=== PATIENT | female | born 1975 | race Caucasian/White ===

== ENCOUNTER 2017-03-24 09:53 | Emergency (ER) | payer BC ==
[2017-03-24 09:17] LABS: URINE HCG POC HCG NEGATIVE (Negative)
[2017-03-24 09:20] LABS: BILIRUBIN,URINE NEGATIVE (NEG); CLARITY,URINE CLOUDY; COLOR,URINE YELLOW; GLUCOSE,URINE NEGATIVE (NEG); NITRITE,URINE NEGATIVE (NEG); PH,URINE 5.5; PROTEIN,URINE NEGATIVE (NEG-TRACE); UROBILINOGEN,URINE 0.2 mg/dL (0.2 mg/dL)
[2017-03-24 09:34] LABS: BACTERIA,URINE FEW /HPF (0-FEW); RBC,URINE RARE /HPF (0-2); SQUAMOUS EPITHELIAL CELL,UR MOD /LPF; WBC,URINE RARE /HPF (0-4)
[2017-03-24] MEDS: ONDANSETRON ODT 4 MG TAB.RAPDIS. PO (09:37)
[2017-03-24] MEDS: PHENAZOPYRIDINE 200 MG TABLET. PO (09:38)
[2017-03-24 10:06] LABS: ADD MAN DIFF? NO
[2017-03-24 10:15] LABS: ANION GAP 11 (6-14); BLOOD UREA NITROGEN 9 mg/dL (7-20); BUN/CREATININE RATIO 11 (6-20); CALCIUM 8.3 mg/dL (8.5-10.1); CARBON DIOXIDE 28 mmol/L (21-32); CHLORIDE 103 mmol/L (98-107); CREATININE 0.8 mg/dL (0.6-1.0); GFR 79.4; GLUCOSE 87 mg/dL (70-99); POTASSIUM 3.3 mmol/L (3.5-5.1); SODIUM 142 mmol/L (136-145)
[2017-03-24 10:22] LABS: ALBUMIN 3.4 g/dL (3.4-5.0); ALK PHOS 62 U/L (46-116); ALT (SGPT) 18 U/L (14-59); AST (SGOT) 19 U/L (15-37); CREATINE KINASE 185 U/L (26-192); LIPASE 68 U/L (73-393); TOTAL BILIRUBIN 0.4 mg/dL (0.2-1.0); TOTAL PROTEIN 6.9 g/dL (6.4-8.2)
[2017-03-24] MEDS: IV NORMAL SALINE 1000ML BAG 1,000 ML IV (10:25)
[2017-03-24 10:47] LABS: BASO # 0.1 x10^3/uL (0.0-0.2); BASO % 1 % (0-3); EOS # 0.2 x10^3/uL (0.0-0.7); EOS % 1 % (0-3); HEMATOCRIT 39.9 % (36.0-47.0); HEMOGLOBIN 13.4 g/dL (12.0-15.5); LYMPH # 2.1 x10^3/uL (1.0-4.8); LYMPH % 16 % (24-48); MEAN CORPUSCULAR HEMOGLOBIN 33 pg (25-35); MEAN CORPUSCULAR HGB CONC 34 g/dL (31-37); MEAN CORPUSCULAR VOLUME 98 fL (79-100); MONO # 0.8 x10^3/uL (0.0-1.1); MONO % 6 % (0-9); NEUT # 10.2 x10^3uL (1.8-7.7); NEUT % 77 % (31-73); PLATELET COUNT 330 x10^3/uL (140-400); RED BLOOD COUNT 4.09 x10^6/uL (3.50-5.40); RED CELL DISTRIBUTION WIDTH 12.5 % (11.5-14.5); WHITE BLOOD COUNT 13.2 x10^3/uL (4.0-11.0)
[2017-03-24] MEDS: DOXYCYCLINE HYCLATE 100 MG TABLET PO (11:37)
[2017-03-24] MEDS: cefTRIAXone IM 250 MG VIAL IM (11:40)
[2017-03-24] MEDS: ONDANSETRON PF 4 MG/2 ML VIAL. IV (12:10)
== END 2017-03-24 12:39 | disposition home or self-care (01) ==
LOC: ER 09:53
DX: R30.0 Dysuria (principal); R10.2 Pelvic and perineal pain; R31.9 Hematuria, unspecified; R11.0 Nausea; R10.30 Lower abdominal pain, unspecified; F32.9 Major depressive disorder, single episode, unspecified; G47.00 Insomnia, unspecified
CPT/HCPCS: 36415; 80053; 81001; 81025; 82550; 83690; 85025; 87086; 96361; 96372; 96374; 99284-25; J0696; J2405; J7030; Q0162

== ENCOUNTER 2017-09-16 09:28 | Emergency (ER) | payer BC ==
[2017-09-16 10:55] LABS: BILIRUBIN,URINE NEGATIVE (NEG); CLARITY,URINE TURBID; COLOR,URINE YELLOW; GLUCOSE,URINE NEGATIVE (NEG); NITRITE,URINE NEGATIVE (NEG); PROTEIN,URINE NEGATIVE (NEG-TRACE); UROBILINOGEN,URINE 0.2 mg/dL (0.2 mg/dL)
[2017-09-16 11:07] LABS: BACTERIA,URINE MOD /HPF (0-FEW); RBC,URINE OCC /HPF (0-2); SQUAMOUS EPITHELIAL CELL,UR MOD /LPF; WBC,URINE OCC /HPF (0-4)
[2017-09-16 11:13] LABS: ADD MAN DIFF? NO; NEG OBC UR NEG; POS OBC UR POS; U PREG PATIENT NEGATIVE (NEG)
[2017-09-16] MEDS: KETOROLAC 30 MG/ML INJ. IV (11:16)
[2017-09-16] MEDS: IV NORMAL SALINE 1000ML BAG 1,000 ML IV (11:16)
[2017-09-16] MEDS: DEXAMETHASONE SOD PHOS 4 MG/ML VIAL IV (11:17)
[2017-09-16] MEDS: diphenhydrAMINE 50 MG/ML VIAL IVP (11:17)
[2017-09-16] MEDS: METOCLOPRAMIDE HCL 10 MG/2 ML VIAL. IV (11:17)
[2017-09-16 11:19] LABS: BASO % 1 % (0-3); EOS % 0 % (0-3); HEMATOCRIT 39.9 % (36.0-47.0); HEMOGLOBIN 14.1 g/dL (12.0-15.5); LYMPH # 1.5 x10^3/uL (1.0-4.8); LYMPH % 19 % (24-48); MEAN CORPUSCULAR HEMOGLOBIN 32 pg (25-35); MEAN CORPUSCULAR HGB CONC 36 g/dL (31-37); MEAN CORPUSCULAR VOLUME 91 fL (79-100); MONO # 0.6 x10^3/uL (0.0-1.1); MONO % 7 % (0-9); NEUT # 5.8 x10^3uL (1.8-7.7); NEUT % 73 % (31-73); PLATELET COUNT 296 x10^3/uL (140-400); RED CELL DISTRIBUTION WIDTH 12.1 % (11.5-14.5)
[2017-09-16 11:26] LABS: ANION GAP 6 (6-14); BLOOD UREA NITROGEN 11 mg/dL (7-20); BUN/CREATININE RATIO 12 (6-20); CALCIUM 8.9 mg/dL (8.5-10.1); CARBON DIOXIDE 27 mmol/L (21-32); CHLORIDE 102 mmol/L (98-107); CREATININE 0.9 mg/dL (0.6-1.0); GLUCOSE 116 mg/dL (70-99); POTASSIUM 3.9 mmol/L (3.5-5.1); SODIUM 135 mmol/L (136-145)
[2017-09-16 11:32] LABS: ALBUMIN 3.7 g/dL (3.4-5.0); ALK PHOS 65 U/L (46-116); ALT (SGPT) 20 U/L (14-59); AST (SGOT) 13 U/L (15-37); TOTAL BILIRUBIN 0.5 mg/dL (0.2-1.0); TOTAL PROTEIN 7.3 g/dL (6.4-8.2)
[2017-09-20 08:49] LABS: URINE HCG POC HCG NEGATIVE (Negative)
== END 2017-09-16 12:58 | disposition home or self-care (01) ==
LOC: ER 09:28
DX: G43.909 Migraine, unspecified, not intractable, without status migrainosus (principal); F32.9 Major depressive disorder, single episode, unspecified
CPT/HCPCS: 36415; 80053; 81001; 81025; 85025; 96361; 96374; 96375; 99284; J1100; J1200; J1885; J2765; J7030

== ENCOUNTER 2019-07-09 01:13 | Emergency (ER) | payer BC ==
[~2019-07-09] VITALS: Ht 165.1 cm; Wt 61.3 kg
[~2019-07-09 01:13] MED LIST: DOXY100C2 PO; L-NO1TBD PO; LEXAPRO5 MG PO; LORA10TA68 PO; ONDA4TAB10 SL; TRAZ-118 PO
[2019-07-09] MEDS ORDERED: FAMOTIDINE 20 MG/2 ML VIAL ONE (01:37)
[2019-07-09] MEDS: ONDANSETRON ODT 4 MG TAB.RAPDIS. PO ONE (01:41)
[2019-07-09] MEDS: FAMOTIDINE 20 MG TABLET. PO ONE (01:46)
[2019-07-09] MEDS: LIDO:MAALOX 1:1 20 ML SINGLE DOSE. SWSW ONE (01:46)
[2019-07-09] MEDS: IV NORMAL SALINE 1000ML BAG 1,000 ML IV ONE (01:46)
[2019-07-09 02:25] VITALS: BP 191/74
--- NOTE | 2019-07-09 06:19 | PHYS DOC ---
Past Medical History Past Medical History: Alcoholism, Depression, Migraines, Other Additional Past Medical Histor: insomnia, recovering alcoholic Past Surgical History: No Surgical History Smoking Status: Never Smoker Alcohol Use: Heavy Additional Information: "DRINKING VODKA SEVERAL TIMES A WEEK" PER PT. Drug Use: None Social History Narrative: DAILY MARIJUANA USE PER PT Adult General Chief Complaint Chief Complaint: ABDOMINAL PAIN HPI HPI Patient is a 43 year old female with history of chronic a list presents with epigastric pain, nausea and vomiting after drinking a pint of alcohol earlier in the evening. Patient denies hematemesis coffee-ground emesis melena hematochezia. No fever chills or sweats. No chest pain shortness of breath. No other acute symptoms or complaints.[] Review of Systems Review of Systems ROS as per HPI All other systems were reviewed and found to be within normal limits, except as documented in this note. Current Medications Current Medications Current Medications Medications (Trade) Dose Ordered Sig/Rosalio Start Time Stop Time Status Last Admin Dose Admin Famotidine (Pepcid Vial) 20 mg STK-MED ONCE 07/09/19 01:37 07/09/19 01:37 DC Famotidine (Pepcid) 20 mg 1X ONCE 07/09/19 02:00 07/09/19 02:01 DC 07/09/19 01:46 20 MG Multi-Ingredient Mouthwash/Gargle (Gi Cocktail) 20 ml 1X ONCE 07/09/19 02:00 07/09/19 02:01 DC 07/09/19 01:46 20 ML Ondansetron HCl (Zofran Odt) 4 mg 1X ONCE 07/09/19 01:45 07/09/19 01:46 DC 07/09/19 01:41 4 MG Sodium Chloride 1,000 ml @ 1,000 mls/hr 1X ONCE 07/09/19 02:00 07/09/19 02:47 DC 07/09/19 01:46 1,000 MLS/HR Allergies Allergies Allergies Coded Allergies Type Severity Reaction Last Updated Verified No Known Drug Allergies 03/24/17 No Physical Exam Physical Exam Constitutional: Well developed, well nourished, no acute distress, non-toxic appearance. [] HENT: Normocephalic, atraumatic, bilateral external ears normal, oropharynx moist, nose normal. [] Eyes: PERRLA, EOMI, conjunctiva normal, no discharge. [] Neck: Normal range of motion, no tenderness. [] Cardiovascular:Heart rate regular rhythm, no murmur [] Lungs & Thorax: Bilateral breath sounds clear to auscultation [] Abdomen: Bowel sounds normal, soft, epigastric tenderness [] Skin: Warm, dry, no erythema, no rash. [] Back: No tenderness,. [] Extremities: No tenderness, no edema. [] Neurologic: Alert and oriented X 3, normal motor function, normal sensory function, no focal deficits noted. [] Psychologic: Affect normal, judgement normal, mood normal. [] Current Patient Data Vital Signs Vital Signs Date Time Temp Pulse Resp B/P (MAP) Pulse Ox O2 Delivery O2 Flow Rate FiO2 07/09/19 02:25 60 17 191/74 (113) 97 Room Air 07/09/19 01:24 98.1 98.1 Lab Values Laboratory Tests Test 07/09/19 01:25 POC Urine HCG, Qualitative Hcg negative (Negative) EKG EKG [] Radiology/Procedures Radiology/Procedures [] Course & Med Decision Making Course & Med Decision Making Pertinent Labs and Imaging studies reviewed. (See chart for details) [Abdominal pain resolved with GI cocktail Pepcid and Zofran. Patient declines alcohol rehabilitation follow-up referral] Dragon Disclaimer Dragon Disclaimer This electronic medical record was generated, in whole or in part, using a voice recognition dictation system. Departure Departure Impression: Primary Impression: Alcoholic gastritis Disposition: HOME, SELF-CARE Condition: STABLE Patient Instructions: Alcoholic Gastritis-Brief Additional Instructions: Please avoid alcohol and follow up [facility] alcohol rehab. GORDON BIRD DO Jul 09, 2019 06:19
== END 2019-07-09 02:47 | disposition home or self-care (01) ==
LOC: ER 01:13
DX: K29.20 Alcoholic gastritis without bleeding (principal); F10.10 Alcohol abuse, uncomplicated; R11.2 Nausea with vomiting, unspecified; R10.13 Epigastric pain; G43.909 Migraine, unspecified, not intractable, without status migrainosus; F32.9 Major depressive disorder, single episode, unspecified
CPT/HCPCS: 81025; 96360; 99284; J7030; Q0162; 96361

== ENCOUNTER 2019-07-15 21:41 | Emergency (ER) | payer BC ==
[~2019-07-15] VITALS: Ht 165.1 cm; Wt 63.6 kg
[2019-07-15 22:29] LABS: BILIRUBIN,URINE NEGATIVE (NEG); CLARITY,URINE CLEAR; COLOR,URINE YELLOW; NITRITE,URINE NEGATIVE (NEG); PH,URINE 7.5 (<5.0-8.0); PROTEIN,URINE NEGATIVE (NEG-TRACE); UROBILINOGEN,URINE 0.2 mg/dL (0.2 mg/dL)
[2019-07-15] MEDS ORDERED: FAMOTIDINE 20 MG/2 ML VIAL IVP ONE (22:30)
[2019-07-15] MEDS ORDERED: ONDANSETRON PF 4 MG/2 ML VIAL. IVP ONE (22:30)
[2019-07-15] MEDS ORDERED: LIDO:MAALOX 1:1 20 ML SINGLE DOSE. PO ONE (22:30)
[2019-07-15 22:31] LABS: BASO # 0.1 x10^3/uL (0.0-0.2); BASO % 1 % (0-3); EOS # 0.1 x10^3/uL (0.0-0.7); EOS % 1 % (0-3); HEMATOCRIT 39.6 % (36.0-47.0); HEMOGLOBIN 13.3 g/dL (12.0-15.5); LYMPH # 2.3 x10^3/uL (1.0-4.8); LYMPH % 31 % (24-48); MEAN CORPUSCULAR HEMOGLOBIN 32 pg (25-35); MEAN CORPUSCULAR HGB CONC 34 g/dL (31-37); MEAN CORPUSCULAR VOLUME 95 fL (79-100); MONO # 0.6 x10^3/uL (0.0-1.1); MONO % 8 % (0-9); NEUT # 4.4 x10^3/uL (1.8-7.7); NEUT % 59 % (31-73); PLATELET COUNT 360 x10^3/uL (140-400); RED BLOOD COUNT 4.18 x10^6/uL (3.50-5.40); RED CELL DISTRIBUTION WIDTH 12.8 % (11.5-14.5); WHITE BLOOD COUNT 7.4 x10^3/uL (4.0-11.0)
[2019-07-15 22:34] LABS: PROTHROMBIN TIME PATIENT 12.6 SEC (11.7-14.0)
[2019-07-15 22:34] LABS: BACTERIA,URINE FEW /HPF (0-FEW); RBC,URINE 0 /HPF (0-2); SQUAMOUS EPITHELIAL CELL,UR FEW /LPF
[2019-07-15 22:36] LABS: BARBITURATES NEG (NEG); BENZODIAZEPINES NEG (NEG); CANNABINOIDS POS (NEG); COCAINE POS (NEG); METHADONE NEG (NEG); OPIATES NEG (NEG); PHENCYCLIDINE NEG (NEG)
[2019-07-15 22:37] LABS: AMPHETAMINE/METHAMPHETAMINE NEG (NEG)
[2019-07-15 22:42] LABS: ACETAMIN < 2 mcg/ml (10-30); SALIC < 2.8 mg/dL (2.8-20.0)
[2019-07-15 22:43] LABS: CALCIUM 8.9 mg/dL (8.5-10.1); CREATININE 0.7 mg/dL (0.6-1.0); GFR 91.8; POTASSIUM 3.5 mmol/L (3.5-5.1)
[2019-07-15] MEDS ORDERED: MULTIVIT INFUSN,ADULT 4,VIT K 10 ML, FOLIC ACID INJ 1 MG in IV NORMAL SALINE 1000ML BAG... IV ONE (22:45)
[2019-07-15] MEDS ORDERED: THIAMINE 100 MG TABLET. PO ONE (22:45)
[2019-07-15 22:48] LABS: ALBUMIN 3.7 g/dL (3.4-5.0); TOTAL BILIRUBIN 0.2 mg/dL (0.2-1.0); TOTAL PROTEIN 7.4 g/dL (6.4-8.2)
[2019-07-15] MEDS ORDERED: METOCLOPRAMIDE HCL 10 MG/2 ML VIAL. IVP ONE (23:45)
[2019-07-15] MEDS ORDERED: diphenhydrAMINE 50 MG/ML VIAL IVP ONE (23:45)
[2019-07-16 00:24] VITALS: BP 152/76
--- NOTE | 2019-07-16 04:02 | PHYS DOC ---
Past Medical History Past Medical History: Alcoholism, Depression, Migraines, Other Additional Past Medical Histor: insomnia, recovering alcoholic Past Surgical History: No Surgical History Smoking Status: Never Smoker Alcohol Use: Heavy Drug Use: None General Adult EDM: Chief Complaint: GI PROBLEM HPI: HPI: Patient is a 43 year old [f__sex] who presents with [] Review of Systems: Review of Systems: Constitutional: Denies fever or chills. [] Eyes: Denies change in visual acuity. [] HENT: Denies nasal congestion or sore throat. [] Respiratory: Denies cough or shortness of breath. [] Cardiovascular: Denies chest pain or edema. [] GI: Denies abdominal pain, nausea, vomiting, bloody stools or diarrhea. [] : Denies dysuria. [] Musculoskeletal: Denies back pain or joint pain. [] Integument: Denies rash. [] Neurologic: Denies headache, focal weakness or sensory changes. [] Endocrine: Denies polyuria or polydipsia. [] Lymphatic: Denies swollen glands. [] Psychiatric: Denies depression or anxiety. [] Heart Score: Risk Factors: Risk Factors: DM, Current or recent (<one month) smoker, HTN, HLP, family history of CAD, obesity. Risk Scores: Score 0 - 3: 2.5% MACE over next 6 weeks - Discharge Home Score 4 - 6: 20.3% MACE over next 6 weeks - Admit for Clinical Observation Score 7 - 10: 72.7% MACE over next 6 weeks - Early Invasive Strategies Current Medications: Current Medications Medications (Trade) Dose Ordered Sig/Rosailo Start Time Stop Time Status Last Admin Dose Admin Diphenhydramine HCl (Benadryl) 25 mg 1X ONCE 20 23:45 520 03:48 DC Famotidine (Pepcid Vial) 20 mg 1X ONCE 20 22:30 20 22:31 DC 20 22:47 20 MG Metoclopramide HCl (Reglan Vial) 10 mg 1X ONCE 520 23:45 5/620 03:48 DC Multi-Ingredient Mouthwash/Gargle (Gi Cocktail) 20 ml 1X ONCE 07/15/19 22:30 5/20 22:31 DC 07/15/19 22:47 20 ML Multivitamins 10 ml/Folic Acid 1 mg/Sodium Chloride 1,010.2 ml @ 999.099 mls/hr 1X ONCE 07/15/19 22:45 07/15/19 23:45 DC 07/15/19 22:45 999.099 MLS/HR Ondansetron HCl (Zofran) 4 mg 1X ONCE 07/15/19 22:30 07/15/19 22:31 DC 07/15/19 22:47 4 MG Thiamine Mononitrate (Vitamin B-1) 100 mg 1X ONCE 07/15/19 22:45 07/15/19 22:46 DC 07/15/19 22:46 100 MG Allergies: Allergies: Allergies Coded Allergies Type Severity Reaction Last Updated Verified No Known Drug Allergies 03/24/17 No Physical Exam: PE: Constitutional: Well developed, well nourished, no acute distress, non-toxic appearance. [] HENT: Normocephalic, atraumatic, bilateral external ears normal, oropharynx moist, no oral exudates, nose normal. [] Eyes: PERRLA, EOMI, conjunctiva normal, no discharge. [] Neck: Normal range of motion, no tenderness, supple, no stridor. [] Cardiovascular:Heart rate regular rhythm, no murmur [] Lungs & Thorax: Bilateral breath sounds clear to auscultation [] Abdomen: Bowel sounds normal, soft, no tenderness, no masses, no pulsatile masses. [] Skin: Warm, dry, no erythema, no rash. [] Back: No tenderness, no CVA tenderness. [] Extremities: No tenderness, no cyanosis, no clubbing, ROM intact, no edema. [] Neurologic: Alert and oriented X 3, normal motor function, normal sensory function, no focal deficits noted. [] Psychologic: Affect normal, judgement normal, mood normal. [] Current Patient Data: Labs: Laboratory Tests Test 07/15/19 21:50 07/15/19 22:04 Urine Collection Type Unknown Urine Color Yellow Urine Clarity Clear Urine pH 7.5 (<5.0-8.0) Urine Specific [place] 1.010 (1.000-1.030) Urine Protein Negative mg/dL (NEG-TRACE) Urine Glucose (UA) Negative mg/dL (NEG) Urine Ketones (Stick) Negative mg/dL (NEG) Urine Blood Trace (NEG) Urine Nitrite Negative (NEG) Urine Bilirubin Negative (NEG) Urine Urobilinogen Dipstick 0.2 mg/dL (0.2 mg/dL) Urine Leukocyte Esterase Negative (NEG) Urine RBC 0 /HPF (0-2) Urine WBC 1-4 /HPF (0-4) Urine Squamous Epithelial Cells Few /LPF Urine Bacteria Few /HPF (0-FEW) Urine Opiates Screen Neg (NEG) Urine Methadone Screen Neg (NEG) Urine Barbiturates Neg (NEG) Urine Phencyclidine Screen Neg (NEG) Urine Amphetamine/Methamphetamine Neg (NEG) Urine Benzodiazepines Screen Neg (NEG) Urine Cocaine Screen Pos (NEG) Urine Cannabinoids Screen Pos (NEG) Urine Ethyl Alcohol Pos (NEG) White Blood Count 7.4 x10^3/uL (4.0-11.0) Red Blood Count 4.18 x10^6/uL (3.50-5.40) Hemoglobin 13.3 g/dL (12.0-15.5) Hematocrit 39.6 % (36.0-47.0) Mean Corpuscular Volume 95 fL (79-100) Mean Corpuscular Hemoglobin 32 pg (25-35) Mean Corpuscular Hemoglobin Concent 34 g/dL (31-37) Red Cell Distribution Width 12.8 % (11.5-14.5) Platelet Count 360 x10^3/uL (140-400) Neutrophils (%) (Auto) 59 % (31-73) Lymphocytes (%) (Auto) 31 % (24-48) Monocytes (%) (Auto) 8 % (0-9) Eosinophils (%) (Auto) 1 % (0-3) Basophils (%) (Auto) 1 % (0-3) Neutrophils # (Auto) 4.4 x10^3/uL (1.8-7.7) Lymphocytes # (Auto) 2.3 x10^3/uL (1.0-4.8) Monocytes # (Auto) 0.6 x10^3/uL (0.0-1.1) Eosinophils # (Auto) 0.1 x10^3/uL (0.0-0.7) Basophils # (Auto) 0.1 x10^3/uL (0.0-0.2) Prothrombin Time 12.6 SEC (11.7-14.0) Prothrombin Time INR 1.0 (0.8-1.1) Activated Partial Thromboplast Time 29 SEC (24-38) Sodium Level 139 mmol/L (136-145) Potassium Level 3.5 mmol/L (3.5-5.1) Chloride Level 101 mmol/L (98-107) Carbon Dioxide Level 29 mmol/L (21-32) Anion Gap 9 (6-14) Blood Urea Nitrogen 5 mg/dL (7-20) L Creatinine 0.7 mg/dL (0.6-1.0) Estimated GFR (Cockcroft-Gault) 91.8 BUN/Creatinine Ratio 7 (6-20) Glucose Level 114 mg/dL (70-99) H Calcium Level 8.9 mg/dL (8.5-10.1) Total Bilirubin 0.2 mg/dL (0.2-1.0) Aspartate Amino Transferase (AST) 18 U/L (15-37) Alanine Aminotransferase (ALT) 18 U/L (14-59) Alkaline Phosphatase 56 U/L (46-116) Creatine Kinase 107 U/L (26-192) Creatine Kinase MB (Mass) 1.0 ng/mL (0.0-3.6) Creatine Kinase MB Relative Index 0.9 % (0-4) Troponin I Quantitative < 0.017 ng/mL (0.000-0.055) Total Protein 7.4 g/dL (6.4-8.2) Albumin 3.7 g/dL (3.4-5.0) Albumin/Globulin Ratio 1.0 (1.0-1.7) Lipase 91 U/L (73-393) Salicylates Level < 2.8 mg/dL (2.8-20.0) L Salicylate Last Dose Date Unk Salicylate Last Dose Time Unk Acetaminophen Level < 2 mcg/ml (10-30) L Acetaminophen Last Dose Date Unk Acetaminophen Last Dose Time Unk Ethyl Alcohol Level 75 mg/dL (0-10) H Laboratory Tests 07/15/19 22:04 Laboratory Tests 07/15/19 22:04 Vital Signs: Vital Signs Date Time Temp Pulse Resp B/P (MAP) Pulse Ox O2 Delivery O2 Flow Rate FiO2 07/15/19 22:00 98.2 87 16 189/98 (128) 100 Room Air 98.2 EKG: EKG: @2236 NSR at 60bpm, NO ST elevation. QRS 82ms, QT/QTc 400/400ms Radiology/Procedures: Radiology/Procedures: [] Course & Med Decision Making: Course & Med Decision Making Pertinent Labs and Imaging studies reviewed. (See chart for details) [] Dragon Disclaimer: Dragon Disclaimer: This electronic medical record was generated, in whole or in part, using a voice recognition dictation system. Departure Departure Impression: Primary Impression: ETOH abuse Additional Impression: Alcoholic gastritis Qualified Codes: K29.20 - Alcoholic gastritis without bleeding Disposition: HOME, SELF-CARE Condition: STABLE Referrals: HERBERT CAMEJO (PCP) Patient Instructions: Alcohol and Drug Addiction, Finding Treatment, Alcoholic Gastritis-Brief Additional Instructions: You have a bed at [facility] for your ETOH abuse/addiction. Please follow up with them first thing in the AM to start your rehabilitation. JOSEE JIMENEZ DO July 16, 2019 04:02
--- NOTE | 2019-07-16 06:31 | EKG ---
[facility] [address] [place] [address] Test Date: 2019-07-15 Test Time: 22:36:12 Pat Name: CLAUDINE COX Department: Room: Gender: F [employer]per: : [id number] Requested By: JOSEE JIMENEZ Order Number: [id number] Reading MD: Michael Chapman MD Measurements Intervals [place] Rate: 60 P: 56 [place]: 174 QRS: 61 QRSD: 82 T: 29 QT: 400 QTc: 400 Interpretive Statements SINUS RHYTHM Electronically Signed On 07-17-2019 11:43:24 CDT by Michael Chapman MD
== END 2019-07-16 01:20 | disposition home or self-care (01) ==
LOC: ER 21:41
DX: K29.20 Alcoholic gastritis without bleeding (principal); F10.10 Alcohol abuse, uncomplicated; F32.9 Major depressive disorder, single episode, unspecified; G43.909 Migraine, unspecified, not intractable, without status migrainosus
CPT/HCPCS: 36415; 80053; 80307; 80329; 81001; 82553; 83690; 84484; 85025; 85610; 85730; 93005; 96365; 96375; 99285; G0480; J1200; J2405; J2765; J3490; J7030